=== PATIENT | male | born 1945 | race Caucasian/White ===

== ENCOUNTER 2017-03-28 08:01 | Day surgery (SDC) | payer OTHER ==
[2017-03-14 13:11] VITALS: BMI 26.0
--- NOTE | 2017-03-14 13:38 | PAT Medication Instructions ---
Service Date Mar 14, 2017. Current Home Medication List Amlodipine (Norvasc), 5 MG PO QAM Aspirin (Aspirin Ec), 81 MG PO QPM Atorvastatin (Lipitor), 20 MG PO QPM Folic Acid (Folvite), 1 MG PO QAM Latanoprost (Xalatan 0.005% Oph Ritu), 1 DROPS OP HS Metoprolol Succ (Toprol Xl) (Toprol-Xl), 50 MG PO QPM Tamsulosin Hcl (Flomax), 0.4 MG PO NOON Valsartan (Diovan), 160 MG PO QAM Medication Instructions For Your Scheduled Surgery - Check with surgeon for instructions: Aspirin (Aspirin Ec), 81 MG PO QPM - Hold the following medications the morning of surgery: Tamsulosin Hcl (Flomax), 0.4 MG PO NOON Valsartan (Diovan), 160 MG PO QAM Folic Acid (Folvite), 1 MG PO QAM - Take the following medications the morning of surgery with a sip of water: Amlodipine (Norvasc), 5 MG PO QAM - Take the following medications as scheduled the night before surgery: Latanoprost (Xalatan 0.005% Oph Ritu), 1 DROPS OP HS Metoprolol Succ (Toprol Xl) (Toprol-Xl), 50 MG PO QPM Atorvastatin (Lipitor), 20 MG PO QPM If you have any questions please call us at [phone] or [phone] or [phone]
--- NOTE | 2017-03-14 14:14 | DIAGNOSTIC IMAGING REPORT ---
CHEST PREADMISSION(PA/LAT) CLINICAL HISTORY: Preoperative evaluation. COMPARISON STUDY: No previous studies for comparison. FINDINGS: Lung volumes are normal. Lungs are clear. No pneumothorax or pleural effusion is present. Cardiac size is normal. Mediastinal contours are normal. There is no evidence of pulmonary edema. IMPRESSION: No acute cardiopulmonary findings. Electronically signed by: Waldo Meza M.D. 03/14/2017 2:13 PM Dictated Date/Time: 03/14/2017 2:12 PM
[2017-03-14 14:48] LABS: BASO % 0.1 %; BASO ABS # 0.01 K/uL (0-0.2); COMPLETE YES; EOS % 0.8 %; HEMATOCRIT 42.3 % (42-52); IG% 0.3 %; LYMPH % 18.2 %; LYMPH ABS # 1.33 K/uL (1.2-3.4); MEAN CELL VOLUME 89.6 fL (80-100); MEAN CORPUSCULAR HEMOGLOBIN 29.4 pg (25-34); MEAN CORPUSCULAR HGB CONC 32.9 g/dl (32-36); MEAN PLATELET VOLUME 10.9 fL (7.4-10.4); MONO % 9.3 %; NEUT % 71.3 %; PLATELET COUNT 180 K/uL (130-400); RED BLOOD COUNT 4.72 M/uL (4.7-6.1); WHITE BLOOD COUNT 7.29 K/uL (4.8-10.8)
[2017-03-14 14:57] LABS: BUN/CREATININE RATIO 12.2 (10-20); CALCIUM 9.3 mg/dl (8.5-10.1); CREATININE 1.3 mg/dl (0.60-1.40); POTASSIUM 4.3 mmol/L (3.5-5.1)
[2017-03-14 14:58] LABS: URINE APPEARANCE CLEAR (CLEAR); URINE BILIRUBIN NEG (NEG); URINE COLOR YELLOW; URINE EPITHELIAL CELL AUTO 0-5 /lpf (0-5); URINE NITRITE NEG (NEG); URINE SPECIFIC GRAVITY 1.019 (1.000-1.030); UROBILINOGEN NEG (NEG)
[2017-03-14 15:04] LABS: MANUAL MICROSCOPIC REQUIRED? NO; REVIEW REQ? NO
[~2017-03-28] VITALS: Ht 177.8 cm; Wt 83.0 kg
[~2017-03-28 08:01] MED LIST: AMLO-110 PO; ASPI81TA28 PO; ATOR-22 PO; CIPROFLOXACIN / D5W 400 MG IV SCH; DVN/160 PO; FOLI1TAB7 PO; LACTATED RINGER'S 1000ML 1,000 ML IV SCH; LATA0.5S OP; METO50TA7 PO; TAMS0.4C38 PO
[2017-03-28 08:29] VITALS: BP 188/83; PULSE 73; TEMP 36.6; O2SAT 98; Ht 177.8 cm; Wt 83.0 kg
[2017-03-28] MEDS ORDERED: EpHEDrine SULFATE INJ 50 MG/ML AMP IV PRN (08:45)
[2017-03-28] MEDS ORDERED: ONDANSETRON INJ 2 MG/ML 2 ML VIAL IV PRN (08:45)
[2017-03-28] MEDS ORDERED: FENTANYL CITRATE INJ 50 MCG/1 ML 2 ML VIAL IV PRN (08:45)
[2017-03-28] MEDS ORDERED: ATROPINE SULFATE 0.1 MG/ML 5ML SYR IV PRN (08:45)
[2017-03-28] MEDS ORDERED: HYDROmorphone INJ 1 MG/ML SYR IV PRN (08:45)
--- NOTE | 2017-03-28 10:05 | History & Physical Bridge Note ---
H&P Re-Evaluation Bridge Note: I have examined the patient, reviewed the History & Physical and in the interval since the performance of the History & Physical I have noted the following changes of clinical significance: No changes noted
[2017-03-28] MEDS ORDERED: MIDAZOLAM HCL 1 MG/ML 2ML VIAL ONE (10:18)
[2017-03-28] MEDS ORDERED: FENTANYL CITRATE INJ 50 MCG/1 ML 2 ML VIAL ONE (10:19)
[2017-03-28] MEDS ORDERED: DEXAMETHASONE SOD INJ 4 MG/ML VIAL ONE (10:49)
[2017-03-28] MEDS ORDERED: LIDOCAINE HCL 2% 2 ML VIAL (20MG/ML) ONE (10:49)
[2017-03-28] MEDS ORDERED: ONDANSETRON INJ 2 MG/ML 2 ML VIAL ONE (10:49)
[2017-03-28] MEDS ORDERED: PROPOFOL IV EMULSION 10 MG/ML 20 ML VIAL IV ONE (10:49)
[2017-03-28] MEDS ORDERED: EpHEDrine SULFATE 50MG/5ML SYR ONE (11:02)
[2017-03-28] MEDS ORDERED: BELLADONNA/OPIUM SUPP 60 MG SUPP PR ONE (11:29)
[2017-03-28] MEDS ORDERED: CIPR1TAB10 PO (11:41)
[2017-03-28] MEDS ORDERED: DOCU-94 PO (11:41)
[2017-03-28] MEDS ORDERED: PHEN-1043 PO (11:41)
[2017-03-28] MEDS ORDERED: OXYC-57 PO (11:41)
--- NOTE | 2017-03-28 11:41 | [facility] Post Operative Brief Note ---
Immediate Operative Summary Operative Date Mar 28, 2017. Pre-Operative Diagnosis Benign Prostatic Hypertrophy with Urinary Obstruction Post-Operative Diagnosis Same as preoperative Procedure(s) Performed Greenlight Transurethral Resection of Prostate Surgeon Dr. Lamin Macias [facility] Representative Surgeon(s) None per surgeon Estimated Blood Loss 40 ML Findings Open fossa with excellent hemostasis after 189K J of energy used Specimens None per surgeon Drains 22 fr 10 cc H2O young Anesthesia GALMA Complication(s) None Disposition Recovery Room / PACU
[2017-03-28] MEDS ORDERED: OXYCODONE/ACETAMINOPHEN 5-325 TAB PO PRN (11:45)
--- NOTE | 2017-03-28 11:48 | Discharge Instructions ---
Discharge Instructions Date of Service Mar 28, 2017. Admission Reason for Admission: Benign Prostatic Hypertrophy Discharge Discharge Diagnosis / Problem: Benign Prostatic Hypertrophy Discharge Goals Goal(s): Decrease discomfort, Improve disease control, Therapeutic intervention Activity Recommendations Activity Limitations: as noted below Lifting Limitations: no more than 25 pounds (x 1 week), gradually increase as tolerated Exercise/Sports Limitations: rest today, gradually increase as tolerated ( Light activity x 1 week. ) May Resume Sexual Activity: after follow-up appointment Shower/Bathe: no limitations Driving or Machine Use: resume 3 days after discharge . Instructions / Follow-Up Instructions / Follow-Up 1. You have been prescribed the antibiotic Ciprofloxacin. Finish all as directed. 2. You may resume taking your Aspirin in 1 week. 3. Follow-up with Dr. Macias as scheduled. Please call our office at if you need to reschedule for any reason. Discharge Diet Recommended Diet: Regular Diet Procedures Procedures Performed: Greenlight Transurethral Resection of Prostate Pending Studies Studies pending at discharge: no Medical Emergencies . Who to Call and When: Medical Emergencies: If at any time you feel your situation is an emergency, please call 911 immediately. . Non-Emergent Contact Non-Emergency issues call your: Urologist Call Non-Emergent contact if: temperature is above 101.5, your pain is not controlled, your pain is worsening, your pain is unusual for you, your pain is concerning you, wound has increased drainage, wound has increased redness, wound has increased pain, you have any medication questions . . "Provider Documentation" section prepared by Joann Stone. . VTE Core Measure Inpt VTE Proph given/why not?: SCD's [place] Drug Monitoring Program Search Results: patient reviewed within database, no issues identified
--- NOTE | 2017-03-28 12:40 | Anesthesiology Progress Note ---
Anesthesia Post Op Note Date & Time Mar 28, 2017 at 12:40 Vital Signs Pain Intensity: 3 Vital Signs Past 12 Hours Date Time Temp Pulse Resp B/P (MAP) Pulse Ox O2 Delivery O2 Flow Rate FiO2 03/28/17 12:26 82 24 147/71 94 03/28/17 12:26 81 24 03/28/17 12:22 36.2 03/28/17 12:21 81 22 03/28/17 12:21 84 22 94 03/28/17 12:20 145/73 03/28/17 12:19 77 15 95 03/28/17 12:19 77 15 03/28/17 12:16 122/95 03/28/17 12:14 83 20 03/28/17 12:14 83 20 94 03/28/17 12:11 144/76 03/28/17 12:09 80 18 94 03/28/17 12:09 80 18 03/28/17 12:08 81 18 03/28/17 12:08 80 18 94 03/28/17 12:06 143/75 03/28/17 12:03 83 17 98 03/28/17 12:03 84 17 03/28/17 12:01 134/71 03/28/17 11:58 78 14 97 03/28/17 11:58 80 14 03/28/17 11:57 88 15 03/28/17 11:57 89 15 98 03/28/17 11:55 138/70 03/28/17 11:52 73 15 03/28/17 11:52 73 15 100 03/28/17 11:51 111/61 03/28/17 11:47 66 14 99 03/28/17 11:47 67 14 03/28/17 11:46 109/59 03/28/17 11:43 97/56 03/28/17 11:42 70 14 03/28/17 11:42 69 14 99 03/28/17 11:42 36.5 72 16 97/56 98 Mask 15 03/28/17 08:29 36.6 73 18 188/83 (118) 98 Room Air Notes Mental Status: alert / awake / arousable, participated in evaluation Pt Amnestic to Procedure: Yes Nausea / Vomiting: adequately controlled Pain: adequately controlled Airway Patency, RR, SpO2: stable & adequate BP & HR: stable & adequate Hydration State: stable & adequate Anesthetic Complications: no major complications apparent
[2017-03-28 12:55] VITALS: BP 171/72; PULSE 75; TEMP 36.4; O2SAT 95
--- NOTE | 2017-03-28 13:09 | [facility] Operative Report ---
Operative Report Operative Date Mar 28, 2017. Pre-Operative Diagnosis Benign Prostatic Hypertrophy with Urinary Obstruction Post-Operative Diagnosis Same as preoperative Procedure(s) Performed Greenlight Transurethral Resection of Prostate Surgeon Dr. Lamin Macias Customer Development Manager Surgeon(s) None per surgeon Estimated Blood Loss 40 ML Findings 190,000 J of energy used over 26 minutes and 43 seconds with excellent hemostasis and visual unobstruction of the prostate gland. Fluids 1100 crystalloid Specimens None per surgeon Drains 22 fr 10 cc H2O young Anesthesia GALMA Complication(s) None Disposition Recovery Room / PACU Indications Pleasant 71-year-old male with a history of persistent bothersome voiding symptoms despite maximal medical therapy for BPH found to have an obstructive prostate gland and office cystoscopy. He is here today for surgical correction of this problem. Intravenous ciprofloxacin was used for preoperative antibiotic coverage and SCDs used for DVT prophylaxis. Please see H&P for further details. Description of Procedure Patient was properly identified and brought to the operative suite after identification of appropriate consent in the chart. Full timeout procedure was followed. General anesthesia with laryngeal mask was initiated and patient was prepped and draped in the dorsal lithotomy position. Greenlight laser resectoscope was introduced into the bladder using a visual obturator the patient was noted to have a significantly long obstructive confirmed prostate gland with an elevated bladder neck. Inside the bladder grade 3 trabeculation with early cellule formation and diverticula were appreciated. No papillary lesions or masses were noted. No stones or calculi. Ureteral orifices were identified and bladder was sufficiently distended to keep him clear of the bladder neck. There were noted to be free of injury at the end of the case. Using a side-firing greenlight laser fiber circumferential vaporization of the prostate gland was undertaken. Relaxing incisions were also made at the 5 and 7 o'clock position to avoid bladder neck contracture in the future. Care was taken to avoid any resection distal to the verumontanum. Small bleeders were fulgurated as necessary using the greenlight laser at coagulation settings. After using approximately 190,000 J of energy over the course of approximately 27 minutes the prostate was noted to be visually unobstructive and the scope was noted to have a significantly improved freedom of motion all which was felt to be consistent with adequate resection. Excellent hemostasis was appreciated after completion of the case. Resectoscope was removed and a 22 [place] catheter was placed over a catheter guide with return of clear irrigant. 10 mL of sterile water were placed within the balloon. Bladder was irrigated with isovolemic return. Belladonna and opium suppository was provided for additional postoperative analgesia. Anesthesia was reversed and patient was transferred the recovery room in stable condition. He was provided with a prescription for ciprofloxacin, Pyridium, Percocet and Colace for postoperative analgesia and antibiotic coverage. Postoperative appointments including trial of void are confirmed. Patient's instructed to contact us service should he note any fevers chills nausea vomiting or other significant difficulties in the postoperative period I attest to the content of the Intraoperative Record and any orders documented therein. Any exceptions are noted below.
[2017-03-28 13:28] VITALS: BP 146/70; PULSE 71; O2SAT 94
[2017-03-28 13:58] VITALS: BP 147/70; PULSE 68; TEMP 36.4; O2SAT 94
== END 2017-03-28 14:03 | disposition home or self-care (01) ==
LOC: C.ACU 08:01
PROVIDERS: ATTEND Urology
DX: N40.1 Benign prostatic hyperplasia with lower urinary tract symptoms (principal); N13.8 Other obstructive and reflux uropathy; N32.3 Diverticulum of bladder; N28.9 Disorder of kidney and ureter, unspecified; H40.9 Unspecified glaucoma; Z79.899 Other long term (current) drug therapy